=== PATIENT | male | born 1985 | race Caucasian/White ===

== ENCOUNTER 2019-06-02 10:32 | Emergency (ER) | payer MEDICAID ==
[~2019-06-02] VITALS: Ht 167.6 cm; Wt 104.0 kg
[2019-06-02] MEDS ORDERED: SODIUM CHLORIDE 0.9% 1,000 ML IV ONE (13:24)
[2019-06-02] MEDS ORDERED: MORPHINE SULFATE 4 MG/ML CPJ (NOT FOR IM USE) IV STA (13:24)
[2019-06-02] MEDS ORDERED: ONDANSETRON HCL 4MG/2ML INJ IV STA (13:24)
[2019-06-02] MEDS ORDERED: METRONIDAZOLE 500 MG PREMIX 100 ML IV ONE (13:30)
[2019-06-02] MEDS ORDERED: CEFTRIAXONE 1 G PREMIX 50 ML IV ONE (13:30)
[2019-06-02 14:01] LABS: BASOPHILS % 0.3 % (0.0-2.0); EOSINOPHILS % 1.9 % (0.0-5.0); HEMATOCRIT. 41.6 % (42.0-52.0); HEMOGLOBIN. 14.4 g/dL (14.0-18.0); LYMPHOCYTES % 26.8 % (20.0-50.0); MEAN CORPUSCULAR HEMOGLOBIN 30.9 pg (28.0-32.0); MEAN CORPUSCULAR VOLUME 89.3 fL (80.0-94.0); MEAN PLATELET VOLUME 9.2 fl (7.4-10.4); MONOCYTES % 11.2 % (2.0-8.0); NEUTROPHILS % 59.8 % (40.0-76.0); PLATELET 206 x1000/uL (130-400); RED BLOOD CELL COUNT 4.66 mill/uL (4.7-6.1); RED CELL DISTRIBUTION WIDTH 13.4 % (11.6-14.6)
[2019-06-02 14:04] LABS: CHLORIDE 105 mEq/L (98-107)
[2019-06-02 14:08] LABS: INR 1.1; PROTHROMBIN TIME 11.1 sec (9.6-11.0)
[2019-06-02 14:47] LABS: CLARITY URINE CLEAR (CLEAR); COLOR URINE YELLOW (YELLOW); KETONES URINE TRACE (NEGATIVE); LEUKOCYTE ESTERASE URINE NEGATIVE (NEGATIVE); NITRITE URINE NEGATIVE (NEGATIVE); OCCULT BLOOD URINE NEGATIVE (NEGATIVE); PROTEIN URINE NEGATIVE (NEGATIVE); SPECIFIC GRAVITY URINE 1.025 (1.005-1.030)
[2019-06-02] MEDS ORDERED: IOHEXOL-300 100 ML BOTTLE ONE (16:57)
[2019-06-02 17:20] VITALS: BP 121/80
== END 2019-06-02 17:24 | disposition home or self-care (01) ==
LOC: ER 10:32
DX: K57.92 Diverticulitis of intestine, part unspecified, without perforation or abscess without bleeding (principal); F12.10 Cannabis abuse, uncomplicated
CPT/HCPCS: 36415; 74177; 80053; 81003; 83690; 85025; 85610; 96365; 96367; 96375; 99284; J0696; J2270; J2405; J3490; J7030; Q9967

== ENCOUNTER 2020-12-14 12:52 | Emergency (ER) | payer MEDICAID ==
[~2020-12-14] VITALS: Ht 172.7 cm; Wt 109.0 kg
[2020-12-14] MEDS ORDERED: KETOROLAC 30MG/ML VIAL IV STA (18:36)
[2020-12-14] MEDS ORDERED: SODIUM CHLORIDE 0.9% 1,000 ML IV ONE (18:45)
[2020-12-14 19:30] LABS: BASOPHILS % 0.2 % (0.0-2.0); EOSINOPHILS % 0.3 % (0.0-5.0); HEMATOCRIT. 41.5 % (42.0-52.0); HEMOGLOBIN. 14.7 g/dL (14.0-18.0); MEAN CORPUSCULAR HEMOGLOBIN 31.2 pg (28.0-32.0); MEAN CORPUSCULAR VOLUME 88.2 fL (80.0-94.0); MEAN PLATELET VOLUME 9.1 fl (7.4-10.4); MONOCYTES % 7.8 % (2.0-8.0); NEUTROPHILS % 72.7 % (40.0-76.0); PLATELET 214 x1000/uL (130-400); RED BLOOD CELL COUNT 4.71 mill/uL (4.7-6.1); RED CELL DISTRIBUTION WIDTH 13.5 % (11.6-14.6)
[2020-12-14 19:36] LABS: CHLORIDE 105 mEq/L (98-107)
[2020-12-14 19:37] VITALS: BP 115/77
[2020-12-14 20:35] LABS: CLARITY URINE CLEAR (CLEAR); COLOR URINE YELLOW (YELLOW); KETONES URINE NEGATIVE (NEGATIVE); LEUKOCYTE ESTERASE URINE TRACE (NEGATIVE); NITRITE URINE NEGATIVE (NEGATIVE); OCCULT BLOOD URINE NEGATIVE (NEGATIVE); PROTEIN URINE NEGATIVE (NEGATIVE); SPECIFIC GRAVITY URINE 1.021 (1.005-1.030); UROBILINOGEN URINE 0.2 E.U./dL (0.2-1.0)
[2020-12-14] MEDS ORDERED: CEFTRIAXONE 1 G PREMIX 50 ML IV ONE (22:45)
[2020-12-14] MEDS ORDERED: METRONIDAZOLE 500 MG PREMIX 100 ML IV ONE (22:45)
[2020-12-14] MEDS ORDERED: AMOX-424 MT (22:54)
[2020-12-14] MEDS ORDERED: HYDR-4001 MT (22:54)
== END 2020-12-15 00:56 | disposition home or self-care (01) ==
LOC: ER 12:52
DX: K57.92 Diverticulitis of intestine, part unspecified, without perforation or abscess without bleeding (principal); R10.9 Unspecified abdominal pain
CPT/HCPCS: 36415; 74177; 80053; 81003; 83690; 85025; 87040; 96361; 96365; 96375; 99285; J0696; J1885; J3490; J7030

== ENCOUNTER 2023-10-01 17:15 | Emergency (ER) | payer MEDICAID ==
[~2023-10-01] VITALS: Ht 167.6 cm; Wt 103.0 kg
[~2023-10-01 17:15] MED LIST: AMOX-424 MT; HYDR-4001 MT
[2023-10-01 17:36] VITALS: BP 136/85; PULSE 71; RESP 16; TEMP 98.2; O2SAT 99
[2023-10-01] MEDS ORDERED: FAMO-135 MT (19:17)
[2023-10-01] MEDS ORDERED: P50 MT (19:17)
== END 2023-10-01 19:49 | disposition home or self-care (01) ==
LOC: ER 17:15
DX: L50.8 Other urticaria (principal); G51.0 Bell's palsy; F12.90 Cannabis use, unspecified, uncomplicated; Z98.890 Other specified postprocedural states
CPT/HCPCS: 99283

== ENCOUNTER 2024-12-27 00:12 | Emergency (ER) | payer SELFPAY ==
[~2024-12-27] VITALS: Ht 167.6 cm; Wt 102.0 kg
[~2024-12-27 00:12] MED LIST changes: +FAMO-135 MT; +P50 MT
[2024-12-27 00:59] LABS: BASOPHILS % 0.4 % (0.0-2.0); EOSINOPHILS % 2.8 % (0.0-5.0); HEMATOCRIT. 41.5 % (42.0-52.0); HEMOGLOBIN. 14.0 g/dL (14.0-18.0); LYMPHOCYTES % 41.3 % (20.0-50.0); MEAN PLATELET VOLUME 8.4 fl (7.4-10.4); MONOCYTES % 8.2 % (2.0-8.0); NEUTROPHILS % 47.3 % (40.0-76.0); PLATELET 214 x1000/uL (130-400); RED BLOOD CELL COUNT 4.61 mill/uL (4.7-6.1); RED CELL DISTRIBUTION WIDTH 13.7 % (11.6-14.6)
[2024-12-27 01:08] VITALS: O2SAT 98
[2024-12-27 01:41] LABS: CREATININE 1.1 mg/dL (0.6-1.3); UREA NITROGEN BLOOD 17 mg/dL (9-23)
[2024-12-27 01:43] LABS: CLARITY URINE CLEAR (CLEAR); COLOR URINE DARK YELLOW (YELLOW); GLUCOSE URINE NEGATIVE (NEGATIVE); KETONES URINE NEGATIVE (NEGATIVE); LEUKOCYTE ESTERASE URINE NEGATIVE (NEGATIVE); NITRITE URINE POSITIVE (NEGATIVE); OCCULT BLOOD URINE 2+ (NEGATIVE); PH URINE 6.5 (4.5-8.0); PROTEIN URINE 2+ (NEGATIVE); SPECIFIC GRAVITY URINE 1.010 (1.005-1.030); UROBILINOGEN URINE 1.0 E.U./dL (0.2-1.0)
[2024-12-27] MEDS ORDERED: SULF1TAB48 MT (02:47)
[2024-12-27] MEDS: SULFAMETHOXAZOLE/TRIMETHOPRIM 800/160MG TABLET PO ONE (03:13)
[2024-12-27] MEDS: KETOROLAC 30MG/ML VIAL IM ONE (03:15)
[2024-12-27 03:20] VITALS: BP 136/82; PULSE 68; RESP 19; TEMP 36.8; O2SAT 100
[2024-12-27 05:56] LABS: SQUAMOUS EPITHELIAL CELL URINE NONE SEEN /lpf (RARE/1+)
[2024-12-27 05:57] LABS: BACTERIA URINE NONE SEEN; WBC URINE 0-2 /hpf (0-2)
== END 2024-12-27 03:20 | disposition home or self-care (01) ==
LOC: ER 00:24
DX: N39.0 Urinary tract infection, site not specified (principal); F12.90 Cannabis use, unspecified, uncomplicated; Z79.899 Other long term (current) drug therapy
CPT/HCPCS: 99283; 80048; 81003; 85025; 36415; 96372; J1885